=== PATIENT | male | born 1960 | race Caucasian/White ===

== ENCOUNTER 2020-02-04 08:46 | Emergency (ER) | payer BC ==
[2020-02-04] MEDS ORDERED: ACETAMINOPHEN 325 MG TABLET ONE (09:38)
[2020-02-04] MEDS ORDERED: IBUPROFEN 200 MG TAB PO ONE (09:39)
--- NOTE | 2020-02-04 10:26 | EDPHYS ---
Physician Documentation [facility] Name: Julio C Azar Age: 59 yrs Sex: Male : 1960 Arrival Date: 02/04/2020 Time: 08:49 Bed 8 Private MD: Len Fuentes R ED Physician Baljit Mcconnell HPI: 02/03 09:26 This 59 yrs old Male presents to ER via Ambulatory with complaints of Sore la1 Throat - swelling/pain. 09:26 The patient presents with sore throat. The patient describes throat pain as constant, la1 scratchy. Onset: The symptoms/episode began/occurred this morning. Severity of symptoms: At their worst the symptoms were moderate. Modifying factors: The symptoms are alleviated by nothing, the symptoms are aggravated by swallowing, Patient's oral intake status: good. The patient has not experienced similar symptoms in the past. pt reports waking up with sore throat at 0300 that has gotten worse with swelling noted externally to submandibular area.. Historical: - Allergies: 09:08 No Known Allergies; ph - Home Meds: 09:08 spironolactone 25 mg oral tab 1 tab once daily [Active]; furosemide 20 mg Oral tab 1 ph tab once daily [Active]; sotalol 80 mg Oral tab 1 tab 2 times per day [Active]; valsartan 40 mg oral tab 1 tab once daily [Active]; atorvastatin 80 mg oral tab 1 tab once daily [Active]; Xarelto 20 mg oral tab 1 tab once daily [Active]; - PMHx: 09:08 Myocardial infarction; Hypertension; Hyperlipidemia; ph - PSHx: 09:08 defibrillator; ph - Immunization history:: Adult Immunizations unknown. - Social history:: Smoking status: Patient denies any tobacco usage or history of. ROS: 09:27 Constitutional: Negative for fever, chills, and weight loss, Eyes: Negative for injury, la1 pain, redness, and discharge. 09:27 Neck: Negative for injury, pain, and swelling, Cardiovascular: Negative for chest pain, palpitations, and edema, Respiratory: Negative for shortness of breath, cough, wheezing, and pleuritic chest pain, Abdomen/GI: Negative for abdominal pain, nausea, vomiting, diarrhea, and constipation, Back: Negative for injury and pain, MS/Extremity: Negative for injury and deformity, Neuro: Negative for headache, weakness, numbness, tingling, and seizure. 09:27 ENT: Positive for sore throat. Exam: 09:28 Constitutional: This is a well developed, well nourished patient who is awake, alert, la1 and in no acute distress. Head/Face: Normocephalic, atraumatic. Eyes: Pupils equal round and reactive to light, extra-ocular motions intact. 09:28 Chest/axilla: Normal chest wall appearance and motion. Nontender with no deformity. No lesions are appreciated. Cardiovascular: Regular rate and rhythm with a normal S1 and S2. No gallops, murmurs, or rubs. Normal PMI, no JVD. No pulse deficits. Respiratory: Lungs have equal breath sounds bilaterally, clear to auscultation Back: No spinal tenderness. No costovertebral tenderness. Full range of motion. MS/ Extremity: Pulses equal, no cyanosis. Neurovascular intact. Full, normal range of motion. 09:28 ENT: Mouth: Oral mucosa: pink and intact, moist, Gums: normal with healthy appearance, Tongue: is normal, Posterior pharynx: Airway: normal, Uvula: normal, non-edematous, no erythema, swelling, that is moderate, erythema, that is moderate, exudate, is not appreciated, redness and swelling to right paratonsillar area without uvular deviation. , Voice: is normal. 09:28 Neck: Lymph nodes: lymphadenopathy is appreciated, anterior cervical nodes, submandibular nodes. Vital Signs: 09:00 BP 144 / 82; Pulse 67; Resp 18; Temp 98.2; Pulse Ox 96% on R/A; Weight 104.33 kg; ph Height 6 ft. 1 in. (185.42 cm); Pain 7/10; 10:39 BP 137 / 86; Pulse 61; Resp 18; Temp 98.0; Pulse Ox 97% on R/A; ph 09:00 Body Mass Index 30.34 (104.33 kg, 185.42 cm) ph MDM: 09:15 Patient medically screened. la1 10:24 Data reviewed: vital signs, nurses notes, lab test result(s), I have discussed the la1 patient's presentation/case with the attending Emergency Department Physician; and as a result, I will discharge patient. Data interpreted: Pulse oximetry: on room air is 96 %. Interpretation: normal. Counseling: I had a detailed discussion with the patient and/or guardian regarding: the historical points, exam findings, and any diagnostic results supporting the discharge/admit diagnosis, lab results, the need for outpatient follow up, a family practitioner, to return to the emergency department if symptoms worsen or persist or if there are any questions or concerns that arise at home. Special discussion: I discussed with the patient/guardian that our pediatricians prefer to use Amoxicillin as a first-line therapy for the symtoms/findings of this patient's presentation. ED course: pt talking without hoarseness, tolerating secretions, able to tolerate PO fluids, no SOB. suspect early peritonsillar abscess. No uvular deviation. Will trial outpatient abx. strict return precautions given,. 02/03 09:23 Order name: Strep; Complete Time: 10:01 la1 02/03 09:23 Order name: Flu; Complete Time: 10:12 la1 02/03 09:58 Order name: Throat Culture EDMS Administered Medications: 09:42 Drug: Tylenol 650 mg Route: PO; ph 10:40 Follow up: Response: No adverse reaction; Pain is decreased ph 09:42 Drug: Ibuprofen 600 mg Route: PO; ph 10:40 Follow up: Response: No adverse reaction; Pain is decreased ph Disposition: 11:32 Co-signature as Attending Physician, Baljit Mcconnell MD I agree with the assessment and kdr plan of care. Disposition: 02/04/20 10:25 Discharged to Home. Impression: Peritonsillar abscess. - Condition is Stable. - Discharge Instructions: Peritonsillar Abscess, Pharyngitis. - Prescriptions for Augmentin 875- 125 mg Oral Tablet - take 1 tablet by ORAL route every 12 hours for 10 days; 20 tablet. - Medication Reconciliation Form, Thank You Letter, Antibiotic Education form. - Follow up: Private Physician; When: 2 - 3 days; Reason: Recheck today's complaints, Re-evaluation by your physician. - Problem is new. - Symptoms have improved. Signatures: Dispatcher [employer] EDMS Baljit Mcconnell MD MD kdr Edgard Terrell, ANIMAL HUSBANDRY WORKER-C ANIMAL HUSBANDRY WORKER-Cla1 Maricarmen Champagne RN RN ph Corrections: (The following items were deleted from the chart) 10:40 10:25 02/04/2020 10:25 Discharged to Home. Impression: Peritonsillar abscess. Condition ph is Stable. Forms are Medication Reconciliation Form, Thank You Letter, Antibiotic Education, Prescription Opioid Use. Follow up: Private Physician; When: 2 - 3 days; Reason: Recheck today's complaints, Re-evaluation by your physician. Problem is new. Symptoms have improved. la1
--- NOTE | 2020-02-04 10:26 | ER ---
Nurse's Notes [facility] Name: Julio C Azar Age: 59 yrs Sex: Male : 1960 Arrival Date: 02/04/2020 Time: 08:49 Bed 8 Private MD: Len Fuentes R Diagnosis: Peritonsillar abscess Presentation: 02/03 09:00 Chief complaint: Patient states: Woke this morning w/ severe sore throat on R side, ph describes that it feels swollen and is difficult to swallow, denies difficulty breathing, cough, chills or fever. Coronavirus screen: Patient denies a cough. Patient denies shortness of breath or difficulty breathing. Patient denies measured and/or subjective temperature greater than 100.4F prior to today's visit. Patient denies travel on a cruise ship or to a country the [facility] currently lists as an affected area. Patient denies contact with known and/or suspected case of COVID-19. Ebola Screen: No symptoms or risks identified at this time. Initial Sepsis Screen: Does the patient meet any 2 criteria? No. Patient's initial sepsis screen is negative. Does the patient have a suspected source of infection? No. Patient's initial sepsis screen is negative. Risk Assessment: Do you want to hurt yourself or someone else? Patient reports no desire to harm self or others. Onset of symptoms was February 04, 2020. 09:00 Method Of Arrival: Ambulatory ph 09:00 Acuity: ARYAN 4 ph Historical: - Allergies: 09:08 No Known Allergies; ph - Home Meds: 09:08 spironolactone 25 mg oral tab 1 tab once daily [Active]; furosemide 20 mg Oral tab 1 ph tab once daily [Active]; sotalol 80 mg Oral tab 1 tab 2 times per day [Active]; valsartan 40 mg oral tab 1 tab once daily [Active]; atorvastatin 80 mg oral tab 1 tab once daily [Active]; Xarelto 20 mg oral tab 1 tab once daily [Active]; - PMHx: 09:08 Myocardial infarction; Hypertension; Hyperlipidemia; ph - PSHx: 09:08 defibrillator; ph - Immunization history:: Adult Immunizations unknown. - Social history:: Smoking status: Patient denies any tobacco usage or history of. Screenin:44 Abuse screen: Denies threats or abuse. Denies injuries from another. Nutritional ph screening: No deficits noted. Tuberculosis screening: No symptoms or risk factors identified. Fall Risk None identified. Assessment: 09:42 General: Appears in no apparent distress. uncomfortable, well groomed, Behavior is ph calm, cooperative, appropriate for age, Denies fever, chills. Pain: Complains of pain in throat. Neuro: Level of Consciousness is awake, alert, obeys commands, Oriented to person, place, time, situation. Cardiovascular: Capillary refill < 3 seconds in bilateral fingers Patient's skin is warm and dry. Respiratory: Airway is patent Respiratory effort is even, unlabored, Breath sounds are clear bilaterally. Denies cough, shortness of breath. GI: No signs and/or symptoms were reported involving the gastrointestinal system. EENT: Throat has enlarged tonsils on right Reports pain when swallowing. Derm: Skin is intact, is healthy with good turgor, Skin is pink, warm \T\ dry. Musculoskeletal: Circulation, motion, and sensation intact. Range of motion: intact in all extremities. 10:39 Reassessment: Patient appears in no apparent distress at this time. Patient and/or ph family updated on plan of care and expected duration. Pain level reassessed. Patient is alert, oriented x 3, equal unlabored respirations, skin warm/dry/pink. Vital Signs: 09:00 BP 144 / 82; Pulse 67; Resp 18; Temp 98.2; Pulse Ox 96% on R/A; Weight 104.33 kg; ph Height 6 ft. 1 in. (185.42 cm); Pain 7/10; 10:39 BP 137 / 86; Pulse 61; Resp 18; Temp 98.0; Pulse Ox 97% on R/A; ph 09:00 Body Mass Index 30.34 (104.33 kg, 185.42 cm) ph ED Course: 08:49 Patient arrived in ED. as 08:49 Len Fuentes MD is Private Physician. as 08:55 Moo Rajan, RN is Primary Nurse. bp 09:00 Maricarmen Champagne, RN is Primary Nurse. ph 09:03 Triage completed. ph 09:08 Arm band placed on Patient placed in an exam room, on a stretcher. ph 09:11 Edgard Terrell [facility]C [facility]. la1 09:11 Baljit Mcconnell MD is Attending Physician. la1 09:41 Flu Sent. ph 09:41 Strep Sent. ph 09:44 Patient has correct armband on for positive identification. Bed in low position. Call ph light in reach. Side rails up X 1. Pulse ox on. NIBP on. Door closed. Noise minimized. Lights dimmed. 09:45 No provider procedures requiring assistance completed. ph 10:40 Patient did not have IV access during this emergency room visit. ph Administered Medications: 09:42 Drug: Tylenol 650 mg Route: PO; ph 10:40 Follow up: Response: No adverse reaction; Pain is decreased ph 09:42 Drug: Ibuprofen 600 mg Route: PO; ph 10:40 Follow up: Response: No adverse reaction; Pain is decreased ph Outcome: 10:25 Discharge ordered by . la1 10:40 Discharged to home ambulatory. ph 10:40 Condition: good 10:40 Discharge instructions given to patient, Instructed on discharge instructions, follow up and referral plans. medication usage, Demonstrated understanding of instructions, follow-up care, medications, Prescriptions given X 1. 10:40 Patient left the ED. ph Signatures: Cyn Brooks Lee, PRINCIPAL GIFTS OFFICER-C PRINCIPAL GIFTS OFFICER-Cla1 Maricarmen Champagne, RN RN ph Moo Rajan RN RN bp
[2020-02-04 10:47] VITALS: BP 137/86; TEMP 98; O2SAT 97
== END 2020-02-04 10:40 | disposition home or self-care (01) ==
LOC: ER 08:46
DX: J36 Peritonsillar abscess (principal); I10 Essential (primary) hypertension; E78.5 Hyperlipidemia, unspecified; I25.2 Old myocardial infarction; Z79.01 Long term (current) use of anticoagulants; Z95.810 Presence of automatic (implantable) cardiac defibrillator
CPT/HCPCS: 87070; 87081; 87804; 99284

== ENCOUNTER → 2024-01-12 | Emergency (ER) | payer BC, OTHER ==
[~2024-01-12] MED LIST: AMIODARONE HCL 150 MG/3 ML INJ IV ONE; AMIODARONE IN DEXTROSE,ISO-OSM 360 MG/200 ML BAG IV ONE; KCL 20 MEQ/100 mL IVPB 100 ML IV ONE; MAGNESIUM SULFATE 1 gm IVPB 1 GM/100 ML BAG IV ONE; NA CHLORIDE 0.9% 250 ML ONE
[2024-01-12 07:21] LABS: Absolute Basophils 0.1 K/uL (0-0.5); Absolute Eosinophils 0.2 K/uL (0-0.5); Absolute Lymphocytes (CBC) 2.7 K/uL (0.7-4.9); Absolute Monocytes 0.6 K/uL (0.1-1.3); Absolute Neutrophil 5.2 K/uL (1.8-8.0); Basophils % 0.7 % (0-1.3); Eosinophils % 2.5 % (0-4.4); Hematocrit 47.1 % (39.6-49.0); Hemoglobin 16.2 g/dL (13.6-17.9); MCH 32.1 pg (27.0-35.0); MCHC 34.5 g/dL (32.0-36.0); MCV 93.3 fL (80-100); MPV 8.7 fL (7.6-11.3); Monocytes % 6.3 % (3.3-12.3); Neutrophils % 59.5 % (41.7-73.7); Nucleated Red Blood Cells % 0.4 % (0-0); Platelets 263 thou/uL (152-406); RBC Red Blood Cell Count 5.05 M/uL (4.33-5.43); Red Cell Distribution Width 13.9 % (12.1-15.2)
[2024-01-12 07:26] LABS: PT Prothrombin Time 16.5 SECONDS (9.5-12.5); Protime INR 1.52
--- NOTE | 2024-01-12 07:47 | EDPHYS ---
Physician Documentation [facility] Name: Julio C Azar Age: 63 yrs Sex: Male : 1960 Arrival Date: 01/12/2024 Time: 06:44 Bed 3 Private MD: ED Physician Nasim Covarrubias HPI: 01/11 07:43 This 63 yrs old Male presents to ER via Ambulatory with complaints of defibrillator ms3 firing. 07:43 63-year-old male with past medical history of hyperlipidemia, hypertension, myocardial ms3 infarction presents to the emergency department after his defibrillator fired 5 times prior to arrival. Patient states he received his first shock while taking a shower and subsequent shocks while drying off. Patient states he was recently taken off of sotalol and placed on amiodarone. Patient denies pain at this time. Patient states he does not feel normal. Patient is without alleviating or inciting factors.. Historical: - Allergies: 06:57 No Known Allergies; km8 - Home Meds: 07:00 atorvastatin 80 mg Oral tab 1 tab once daily [Active]; furosemide 20 mg Oral tab 1 tab km8 once daily [Active]; valsartan 40 mg Oral tab 1 tab once daily [Active]; Xarelto 20 mg Oral tab 1 tab once daily [Active]; amiodarone 200 mg oral tablet 2 times per day [Active]; - PMHx: 06:57 Hyperlipidemia; Hypertension; Myocardial infarction; km8 - PSHx: 06:57 Appendectomy; cardiac stents; ICD; km8 - Immunization history:: Client reports receiving the 2nd dose of the Covid vaccine, Flu vaccine is not up to date. - Social history:: Smoking status: Patient denies any tobacco usage or history of. Patient/guardian denies using alcohol, street drugs. ROS: 07:43 Constitutional: Negative for fever, and chills. Neck: Negative for injury, pain, and ms3 swelling, 07:43 Respiratory: Negative for shortness of breath, cough, wheezing, and pleuritic chest pain, Abdomen/GI: Negative for abdominal pain, nausea, vomiting, diarrhea, and constipation, MS/Extremity: Negative for injury and deformity, Skin: Negative for injury, rash, and discoloration, 07:43 Cardiovascular: Positive for Defibrillator firing, Exam: 07:43 Constitutional: This is a well developed, well nourished patient who is awake, alert, ms3 and in no acute distress. Head/Face: Normocephalic, atraumatic. Neck: Trachea midline, no cervical lymphadenopathy. Supple, full range of motion without nuchal rigidity, or vertebral point tenderness. No Meningismus. Chest/axilla: Normal chest wall appearance and motion. Nontender with no deformity. Respiratory: Lungs have equal breath sounds bilaterally, clear to auscultation and percussion. No rales, rhonchi or wheezes noted. No increased work of breathing, no retractions or nasal flaring. 07:43 Cardiovascular: Rate: tachycardic, Rhythm: irregularly irregular, Pulses: no pulse deficits are appreciated, 07:55 ECG was reviewed by the Attending Physician. ms3 10:32 ECG was reviewed by the Attending Physician. ms3 Vital Signs: 06:47 BP 119 / 97; Pulse 136; Resp 14; Temp 98.4(O); Pulse Ox 99% on R/A; Weight 102.06 kg km8 (R); Height 6 ft. 1 in. (R); Pain 2/10; 07:15 BP 142 / 75; Pulse 117; Resp 17; Pulse Ox 96% ; ko1 07:57 BP 110 / 77; Pulse 105; Resp 19; Pulse Ox 97% on R/A; ko1 08:34 BP 120 / 90; Pulse 100; Resp 22; Pulse Ox 97% ; ko1 09:28 BP 119 / 71; Pulse 92; Resp 18; Pulse Ox 97% on R/A; ko1 11:09 BP 121 / 94; Pulse 85; Resp 15; Pulse Ox 99% ; bp 11:30 BP 111 / 73; Pulse 89; Resp 15; Pulse Ox 99% ; ko1 06:47 Body Mass Index 29.68 (102.06 kg, 185.42 cm) km8 06:47 Pain Scale: Adult km8 Chandana Coma Score: 06:47 Eye Response: spontaneous(4). Motor Response: obeys commands(6). Verbal Response: km8 oriented(5). Total: 15. MDM: 07:00 Transition of care: Care assumed from Jason Cazares MD. ms3 07:24 Patient medically screened. ms3 07:43 Differential diagnosis: arrythmia, Atrial fibrillation with rapid ventricular rate ms3 versus myocardial infarction. 10:30 Data reviewed: vital signs, nurses notes, lab test result(s), EKG, radiologic studies, ms3 and as a result, I will transfer patient. 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 I considered the following discharge prescriptions or medication management in the emergency department Medications were administered in the Emergency Department. See MAR. Independent interpretation of the following test(s) in the Emergency Department EKG: See my EKG interpretation above X-Ray: My interpretation is CXR image reviewed by me shows AICD in place, no pneumonia, no pulm edema. Care significantly affected by the following chronic conditions: HLD, HTN, NM. Counseling: I had a detailed discussion with the patient and/or guardian regarding the historical points, exam findings, and any diagnostic results supporting the discharge/admit diagnosis, lab results, radiology results, the need to transfer to another facility, for higher level of care. 10:35 ED course: Discussed case with Dr Perez and he accepts patient to the ED. Patient and ms3 his updated on transfer process.. 01/11 06:50 Order name: Basic Metabolic Panel; Complete Time: 07:56 rn 01/11 06:50 Order name: CBC with Diff; Complete Time: 07:35 rn 01/11 06:50 Order name: LFT's; Complete Time: 07:56 rn 01/11 06:50 Order name: NT PRO-BNP; Complete Time: 07:56 rn 01/11 06:50 Order name: PT-INR; Complete Time: 07:35 rn 01/11 06:50 Order name: Troponin HS; Complete Time: 07:56 rn 01/11 06:50 Order name: XRAY Chest (1 view); Complete Time: 07:57 rn 01/11 06:50 Order name: EKG; Complete Time: 06:51 rn 01/11 09:50 Order name: EKG; Complete Time: 09:50 ms3 01/11 06:50 Order name: Cardiac monitoring; Complete Time: 06:51 rn 01/11 06:50 Order name: EKG - Nurse/Tech; Complete Time: 06:51 rn 01/11 06:50 Order name: IV Saline Lock; Complete Time: 06:51 rn 01/11 06:50 Order name: Labs collected and sent; Complete Time: 06:51 rn 01/11 06:50 Order name: O2 Per Protocol; Complete Time: 06:51 rn 01/11 06:50 Order name: O2 Sat Monitoring; Complete Time: 06:51 rn 01/11 09:50 Order name: EKG - Nurse/Tech; Complete Time: 10:19 ms3 EC:55 Rate is 130 beats/min. Rhythm is irregularly irregular. QRS [place] is Normal. Clinical ms3 impression: Atrial fibrillation with RVR with non-sustained V tach. Interpreted by me. Reviewed by me. 10:32 Rate is 77 beats/min. Rhythm is irregularly irregular. Clinical impression: Paced with ms3 PVCs. Interpreted by me. Reviewed by me. Administered Medications: 06:59 Drug: Magnesium Sulfate IVPB 1 grams IVPB once over 1 hrs Route: IVPB; Infused Over: 1 lg3 hrs; Site: right hand; 07:15 Follow up: Response: No adverse reaction; IV Status: Completed infusion; IV Intake: ko1 100ml 07:12 Drug: amiodarone IVPB 150 mg 100 ml IVPB once over 10 mins; (mix in D5W) Volume: 100 ko1 ml; Route: IVPB; Infused Over: 10 mins; Site: left antecubital; 08:12 Follow up: IV Status: Completed infusion bp 07:12 Drug: amiodarone IVPB 900 mg, D5W IV 500 ml IVPB at 1 mg/min continuous; for 6 hrs, ko1 then change to 0.5 mg/min Route: IVPB; Rate: 1 mg/min; Site: left antecubital; 11:52 Follow up: IV Status: Infusion continued upon transfer bp 08:12 Drug: Potassium Chloride IV 20 mEq IV at calculated rate once; administer over 1-2 bp hours Route: IV; Rate: calculated rate; Site: right hand; 11:52 Follow up: IV Status: Completed infusion; IV Intake: 100ml bp Disposition Summary: 01/12/24 07:46 Transfer Ordered Notes: Transfer Location: [facility] ms3 Reason: Higher level of care ms3 Condition: Stable ms3 Problem: new ms3 Symptoms: have improved ms3 Accepting Physician: Dr Perez(01/12/24 11:53) bp Diagnosis - Ventricular tachycardia ms3 - Unspecified atrial fibrillation - with rapid ventricular rate ms3 - Presence of automatic (implantable) cardiac defibrillator ms3 - Hypokalemia ms3 Forms: - Medication Reconciliation Form ms3 - SBAR form ms3 Critical care time excluding procedures: 10:31 Critical care time: Bedside Care: 30 minutes, Family Intervention: 5 minutes. Total ms3 time: 35 minutes Signatures: Dispatcher [employer] EDJason Elam MD MD rn Peltier, Brian, RN RN Leydi Olvera RN RN [email or web address] Nasim Covarrubias DO DO ms3 Sulema Sams RN RN ko1 Roslyn Murillo RN RN km8 Corrections: (The following items were deleted from the chart) 10:36 07:46 Dr [email or web address] ms3 11:53 10:36 Dr Perez ms3 bp
--- NOTE | 2024-01-12 07:47 | ER ---
Nurse's Notes [facility] Name: Julio C Azar Age: 63 yrs Sex: Male : 1960 Arrival Date: 01/12/2024 Time: 06:44 Bed 3 Private MD: Diagnosis: Ventricular tachycardia;Unspecified atrial fibrillation-with rapid ventricular rate;Presence of automatic (implantable) cardiac defibrillator;Hypokalemia Presentation: 01/11 06:47 Chief complaint: Patient states: his defibrillator shocked him 5 times since 0610 this km8 AM; denies SOB or dizziness, A\T\Ox4; pt reports left sided chest pain. Coronavirus screen: Client denies travel out of the [place] in the last 14 days. Ebola Screen: No symptoms or risks identified at this time. Initial Sepsis Screen: Does the patient meet any 2 criteria? HR > 90 bpm. No. Patient's initial sepsis screen is negative. Does the patient have a suspected source of infection? No. Patient's initial sepsis screen is negative. Risk Assessment: Do you want to hurt yourself or someone else? Patient reports no desire to harm self or others. Onset of symptoms was January 12, 2024 at 06:10. 06:47 Method Of Arrival: Ambulatory km8 06:47 Acuity: ARYAN 2 km8 Triage Assessment: 06:47 General: Appears in no apparent distress. uncomfortable, Behavior is calm, cooperative, km8 appropriate for age. Pain: Complains of pain in left breast Pain currently is 2 out of 10 on a pain scale. EENT: No signs and/or symptoms were reported regarding the EENT system. Neuro: Level of Consciousness is awake, alert, obeys commands, Oriented to person, place, time, situation. Cardiovascular: Reports chest pain, Denies shortness of breath, Patient's skin is warm and dry. Rhythm is atrial fibrillation with rapid ventricular response Chest pain is described as mild, is located in left anterior. Respiratory: Airway is patent Respiratory effort is even, unlabored, Respiratory pattern is regular, symmetrical, Denies shortness of breath. GI: No signs and/or symptoms were reported involving the gastrointestinal system. : No signs and/or symptoms were reported regarding the genitourinary system. Derm: No signs and/or symptoms reported regarding the dermatologic system. Skin is intact, is healthy with good turgor, Skin is dry, Skin is pink, warm \T\ dry. normal, Skin temperature is warm. Musculoskeletal: No signs and/or symptoms reported regarding the musculoskeletal system. Range of motion: intact in all extremities. Historical: - Allergies: No Known Allergies; km8 - Home Meds: 07:00 atorvastatin 80 mg Oral tab 1 tab once daily [Active]; furosemide 20 mg Oral tab 1 tab km8 once daily [Active]; valsartan 40 mg Oral tab 1 tab once daily [Active]; Xarelto 20 mg Oral tab 1 tab once daily [Active]; amiodarone 200 mg oral tablet 2 times per day [Active]; - PMHx: Hyperlipidemia; Hypertension; Myocardial infarction; km8 - PSHx: Appendectomy; cardiac stents; ICD; km8 - Immunization history:: Client reports receiving the 2nd dose of the Covid vaccine, Flu vaccine is not up to date. - Social history:: Smoking status: Patient denies any tobacco usage or history of. Patient/guardian denies using alcohol, street drugs. Screenin:47 [facility] ED Fall Risk Assessment (Adult) History of falling in the last 3 months, km8 including since admission No falls in past 3 months (0 pts) Confusion or Disorientation No (0 pts) Intoxicated or Sedated No (0 pts) Impaired Gait No (0 pts) Mobility Assist Device Used No (0 pt) Altered Elimination No (0 pt) Score/Fall Risk Level 0 - 2 = Low Risk Oriented to surroundings, Maintained a safe environment, Educated pt \T\ family on fall prevention, incl call for assistance when getting out of bed, Assessed \T\ reinforced patient's understanding of fall precautions. Abuse screen: Denies threats or abuse. Denies injuries from another. Nutritional screening: No deficits noted. Tuberculosis screening: No symptoms or risk factors identified. Assessment: 06:47 Reassessment: see triage assessment. [facility] 08:00 Reassessment: TRANSFER INITIATED WITH [facility]. bp 10:00 Reassessment: No changes from previously documented assessment. Patient is alert, bp oriented x 3, equal unlabored respirations, skin warm/dry/pink. 11:09 Reassessment: [facility] TO [facility]. TRANSFER PENDING. bp Vital Signs: 06:47 BP 119 / 97; Pulse 136; Resp 14; Temp 98.4(O); Pulse Ox 99% on R/A; Weight 102.06 kg km8 (R); Height 6 ft. 1 in. (R); Pain 2/10; 07:15 BP 142 / 75; Pulse 117; Resp 17; Pulse Ox 96% ; ko1 07:57 BP 110 / 77; Pulse 105; Resp 19; Pulse Ox 97% on R/A; ko1 08:34 BP 120 / 90; Pulse 100; Resp 22; Pulse Ox 97% ; ko1 09:28 BP 119 / 71; Pulse 92; Resp 18; Pulse Ox 97% on R/A; ko1 11:09 BP 121 / 94; Pulse 85; Resp 15; Pulse Ox 99% ; bp 11:30 BP 111 / 73; Pulse 89; Resp 15; Pulse Ox 99% ; ko1 06:47 Body Mass Index 29.68 (102.06 kg, 185.42 cm) km8 06:47 Pain Scale: Adult km8 Chandana Coma Score: 06:47 Eye Response: spontaneous(4). Motor Response: obeys commands(6). Verbal Response: km8 oriented(5). Total: 15. ED Course: 06:47 Patient arrived in ED. lg3 06:47 Arm band placed on right wrist. km8 06:47 Patient has correct armband on for positive identification. Placed in gown. Bed in low km8 position. Call light in reach. Side rails up X2. bus driver/monitor on. Pulse ox on. NIBP on. 06:47 Inserted saline lock: 20 gauge in right hand, using aseptic technique. Blood collected. km8 Patient maintains SpO2 saturation greater than 95% on room air. 06:54 Triage completed. km8 07:03 Inserted saline lock: 20 gauge in left antecubital area, using aseptic technique. km8 07:10 Nasim Covarrubias DO is Attending Physician. ms3 07:14 Sulema Sams, ERIC is Primary Nurse. ko1 07:51 XRAY Chest (1 view) In Process Unspecified. EDMS 07:57 initiated transfer to [facility]. bd 07:57 [employer]vee Superintendent attempted to contact Dr Webster at [phone]. left a message to call Dr leny Covarrubias back. 10:19 EKG done. bp 10:59 pt accepted in transfer to [facility] [place] ER by Dr Perez, admin approval given by leny Conteh RN. 11:53 No provider procedures requiring assistance completed. Patient transferred, IV remains bp in place. Administered Medications: 06:59 Drug: Magnesium Sulfate IVPB 1 grams IVPB once over 1 hrs Route: IVPB; Infused Over: 1 lg3 hrs; Site: right hand; 07:15 Follow up: Response: No adverse reaction; IV Status: Completed infusion; IV Intake: ko1 100ml 07:12 Drug: amiodarone IVPB 150 mg 100 ml IVPB once over 10 mins; (mix in D5W) Volume: 100 ko1 ml; Route: IVPB; Infused Over: 10 mins; Site: left antecubital; 08:12 Follow up: IV Status: Completed infusion bp 07:12 Drug: amiodarone IVPB 900 mg, D5W IV 500 ml IVPB at 1 mg/min continuous; for 6 hrs, ko1 then change to 0.5 mg/min Route: IVPB; Rate: 1 mg/min; Site: left antecubital; 11:52 Follow up: IV Status: Infusion continued upon transfer bp 08:12 Drug: Potassium Chloride IV 20 mEq IV at calculated rate once; administer over 1-2 bp hours Route: IV; Rate: calculated rate; Site: right hand; 11:52 Follow up: IV Status: Completed infusion; IV Intake: 100ml bp Intake: 07:15 IV: 100ml; Total: 100ml. ko1 11:52 IV: 100ml; Total: 200ml. bp Outcome: 07:46 ER care complete, transfer ordered by ms3 11:52 Transferred by ground EMS to [facility], bp 11:52 Condition: stable 11:52 Instructed on the need for transfer, 11:53 Patient left the ED. bp Signatures: Dispatcher [employer] EDMS Luba Sung Brian RN RN bp Leydi Weiss RN RN lg3 Nasim Covarrubias DO DO ms3 Sulema Sams, RN RN ko1 Roslyn Murillo, RN RN km8
[2024-01-12 07:49] LABS: Albumin 3.8 g/dL (3.4-5.0); Anion Gap 10.4 mEq/L (5.0-15.0); Bilirubin Direct 0.2 mg/dL (0-0.2); Bilirubin Indirect, Calculated 0.5 mg/dL (0.2-0.8); Bilirubin Total 0.7 mg/dL (0.2-1.0); Globulin 3.8 g/dL (2.3-3.5); Protein, Total 7.6 g/dL (6.4-8.2)
[2024-01-12 07:50] LABS: Potassium 3.4 mEq/L (3.5-5.1)
[2024-01-12 07:52] LABS: Troponin High Sensitivity 105.4 pg/mL (<58.9)
--- NOTE | 2024-01-12 07:56 | RAD REPORT ---
EXAM DESCRIPTION: RAD - Chest Single View - 01/12/2024 7:49 am CLINICAL HISTORY: PALPITATIONS Chest pain. COMPARISON: CHEST PA AND LAT 2 VIEW dated 09/08/2012 FINDINGS: Portable technique limits examination quality. The lungs are grossly clear. The heart is upper limit of normal in size. No displaced fractures.Multi lead pacer/defibrillator device. IMPRESSION: No acute intrathoracic process suspected.
[2024-01-12 12:22] VITALS: BP 111/73; TEMP 98.4; O2SAT 99
--- NOTE | 2024-01-13 17:05 | EKG ---
Test Date: 2024-01-12 Test Time: 10:06:30 Grill Chef: BP MEASUREMENT RESULTS: Intervals: Rate: 77 [place]: QRSD: 106 QT: 404 QTc: 457 [place]: P: [place]: QRS: 59 T: -21 INTERPRETIVE STATEMENTS: Suspect unspecified pacemaker failure Atrial fibrillation with occasional ventricular-paced complexes and with premature ventricular or aberrantly conducted complexe Possible Inferior infarct, age undetermined Anterior infarct, age undetermined Abnormal ECG Compared to ECG 01/12/2024 06:35:51 Ventricular premature complex(es) now present ST (T wave) deviation no longer present Possible ischemia no longer present Myocardial infarct finding still present Electronically Signed On 01-13-24 17:01:36 CDT by Alan Valderrama
--- NOTE | 2024-01-14 12:48 | EKG ---
Test Date: 2024-01-12 Test Time: 06:35:51 [employer] Superintendent: RV MEASUREMENT RESULTS: Intervals: Rate: 130 NV: QRSD: 106 QT: 270 QTc: 397 [place]: P: NV: QRS: 42 T: 233 INTERPRETIVE STATEMENTS: Atrial fibrillation with RVR Cannot rule out Inferior infarct, age undetermined Cannot rule out Anterior infarct, age undetermined ST & T wave abnormality, consider lateral ischemia Abnormal ECG No previous ECG available for comparison Electronically Signed On 01-14-24 12:46:39 CDT by Alan Valderrama
== END ==
LOC: ER 06:44
DX: I48.20 Chronic atrial fibrillation, unspecified (principal); Z79.01 Long term (current) use of anticoagulants; E87.6 Hypokalemia; Z95.810 Presence of automatic (implantable) cardiac defibrillator; I10 Essential (primary) hypertension; Z95.818 Presence of other cardiac implants and grafts
CPT/HCPCS: 93005; 85025; 80048; 36415; 85610; 80076; 84484; 83880; 71045; J3480; J3475; J0282 ×2; J7050; 99285